=== PATIENT | female | born 1955 | race Caucasian/White ===

== ENCOUNTER 2017-07-12 20:24 | Emergency (ER) | payer OTHER ==
[~2017-07-12] VITALS: Ht 160 cm; Wt 50.3 kg
[~2017-07-12 20:24] MED LIST: ATIVAN2 MG PO; BACTRIM,SEPT1 TABLET PO; DAILY VALUE1 EACH PO; DEPAKOTE ER250 MG PO; DEPAKOTE ER500 MG PO; DEPAKOTE250 MG PO; DILANTIN; DILANTIN100 MG PO; Depakote PO; GABAPENTIN100 MG PO; IBUPROFEN200 M1 PO; K-DUR20 MEQ PO; KEPPRA XR750 MG PO; Keppra PO; LACTULOSE10 GM/151 PO; MOTRIN600 MG PO; Motrin PO; NORCO 5/3251 TABLET PO; PHENYTOIN SODI100 M1 PO; PLAVIX75 MG PO; PROAIR HFA8.5 GM IH; SPIRIVA1 INHALATI IH; THERAGRAN1 TABLET PO; Tylenol Extra Streng PO; Tylenol Regular Stre PO; Ultram PO; ZESTRIL,PRINIVI10 MG PO; ZOLOFT25 MG
[2017-07-12 21:28] LABS: MCH 29.7 PG (29.0-34.0); MCHC 33.7 G/DL (30.0-36.0); MCV 88.1 FL (83-99); MEAN PLAT.VOLUME 10.5 uM^3 (9.5-12.4); PLATELET COUNT 156 K/uL (156-360); RBC DIS.WIDTH-CV 12.9 % (11.8-14.6); RBC DIS.WIDTH-SD 41.5 % (39-53); RED BLOOD COUNT 4.88 M/uL (3.80-5.20); WHITE BLOOD COUNT 9.9 K/uL (4.1-10.2)
[2017-07-12 21:39] LABS: CHLORIDE 101 mEq/L (99-109); SODIUM 137 mEq/L (136-147)
[2017-07-12 21:40] LABS: GLUCOSE 99 mg/dL (70-99)
[2017-07-12 21:42] LABS: ANION GAP 13 MEQ/L (2-14)
[2017-07-12 21:44] LABS: GFR ESTIMATE (CALCULATED) > 59 mL/min/
[2017-07-12 21:45] LABS: UREA NITROGEN (BUN) 7 mg/dL (9-23)
[2017-07-12] MEDS ORDERED: ZITHROMAX250 MG PO (22:58)
[2017-07-12] MEDS ORDERED: PREDNISONE20 MG PO (22:58)
[2017-07-13] VITALS: BP 171/91
== END 2017-07-12 23:59 | disposition home or self-care (01) ==
LOC: EME 20:24
DX: J44.0 Chronic obstructive pulmonary disease with (acute) lower respiratory infection (principal); J20.9 Acute bronchitis, unspecified; G40.909 Epilepsy, unspecified, not intractable, without status epilepticus; I10 Essential (primary) hypertension; F32.9 Major depressive disorder, single episode, unspecified; Z85.42 Personal history of malignant neoplasm of other parts of uterus; Z85.43 Personal history of malignant neoplasm of ovary; Z86.73 Personal history of transient ischemic attack (TIA), and cerebral infarction without residual deficits; F17.200 Nicotine dependence, unspecified, uncomplicated
CPT/HCPCS: 71020; 80048; 85027; 93005; 99281; 99284; J7512